=== PATIENT | female | born 1970 | race American Indian/Alaskan Native ===

== ENCOUNTER 2019-02-24 15:35 | Emergency (ER) | payer MEDICAID ==
--- NOTE | 2019-02-24 15:58 | Emergency Department Report ---
Blank Doc - Documentation Documentation: 49-year-old female that presents with headache and HTN. This initial assessment/diagnostic orders/clinical plan/treatment(s) is/are subject to change based on patient's health status, clinical progression and re- assessment by fellow clinical providers in the ED. Further treatment and workup at subsequent clinical providers discretion. Patient/guardians urged not to elope from the ED as their condition may be serious if not clinically assessed and managed. Initial orders include: 1- Patient sent to [facility] for further evaluation and treatment 2- CT head 3- labs
[2019-02-24 17:14] LABS: Basophils # (Auto) 0.1 K/mm3 (0.0-0.1); Basophils % (Auto) 1.2 % (0.0-1.8); Eosinophils # (Auto) 0.1 K/mm3 (0.0-0.4); Eosinophils % (Auto) 1.8 % (0.0-4.3); Hematocrit 41.7 % (30.3-42.9); Hemoglobin 14.3 gm/dl (10.1-14.3); Lymphocytes # (Auto) 2.4 K/mm3 (1.2-5.4); Lymphocytes % (Auto) 35.1 % (13.4-35.0); Mean Corpuscular HGB Conc 34 % (30-34); Mean Corpuscular Volume 83 fl (79-97); Monocytes # (Auto) 0.3 K/mm3 (0.0-0.8); Red Blood Count 5.01 M/mm3 (3.65-5.03); Red Cell Distribution Width 13.9 % (13.2-15.2)
[2019-02-24 17:22] LABS: Platelet Count 233 K/mm3 (140-440)
--- NOTE | 2019-02-24 17:50 | Cat Scan Report ---
CT BRAIN: 02/24/2019 INDICATION / CLINICAL INFORMATION: headache. COMPARISON: None available. FINDINGS: BRAIN/INTRACRANIAL STRUCTURES: Unenhanced CT images of the brain demonstrate no evidence of acute int racranial abnormality. Ventricles and sulci are normal in size and shape. There is no evidence of acute ischemic injury, hemorrhage, or mass. There are no abnormal extra-axial fluid collections. EXTRACRANIAL STRUCTURES: Unremarkable. IMPRESSION: Negative unenhanced CT of the brain. All CT scans at this location are performed using dose reduction to ALARA by means of automated expos ure control. Signer Name: José Miguel Dumas MD Signed: 02/24/2019 5:46 PM Workstation Name: [id number]
[2019-02-24 18:46] LABS: BUN/Creatinine Ratio 11; Blood Urea Nitrogen 12 mg/dL (7-17); Calcium 9.2 mg/dL (8.4-10.2); Hemolysis Index 6
[2019-02-24] MEDS ORDERED: ASPIRIN 325 MG TAB PO ONE (20:12)
--- NOTE | 2019-02-24 21:28 | Emergency Department Report ---
ED General Adult HPI - General Chief complaint: High BP Stated complaint: MEDICAL CLEARANCE Time Seen by Provider: 02/24/19 15:57 Source: patient Mode of arrival: Ambulatory Limitations: No Limitations - History of Present Illness Initial comments: Patient is a 49-year-old -[place] female with a history of hypertension and hyperlipidemia but noncompliant with medications who presents to the ED with complaint of acute onset onset persistent frontal headache for the last 1 week. Patient states that she has not been taking her blood pressure medications especially in the last 1 year preferring to use "home remedies"like vinegar. Patient denies chest pain, shortness of breath, dizziness, syncope, lightheadedness, change in vision, abdominal pain, nausea, vomiting, diaphoresis, dysuria or urinary frequency and urgency, sore throat or nasal and sinus congestion, fever and chills. Patient states that she went to her primary care physician about 8 hours ago and upon evaluation her blood pressure was significantly elevated, and that she was discharged home on with a prescription for lisinopril HCTZ 20-12.5 mg daily which she has not picked up from the pharmacy. Patient states that she was advised to come to the ED for further evaluation. MD Complaint: elevated BP -: Sudden, week(s) (1) Location: head, chest Radiation: non-radiation Severity scale (0 -10): 4 Quality: aching Consistency: constant Improves with: none Worsens with: none Associated Symptoms: denies other symptoms, headaches. denies: confusion, chest pain, cough, diaphoresis, fever/chills, loss of appetite, malaise, nausea/vomiting, rash, seizure, shortness of breath, syncope Treatments Prior to Arrival: none - Related Data Previous Rx's Medication Instructions Recorded Last Taken Type Aspirin 325 mg PO QDAY #30 tablet 12/13/17 Unknown Rx Ibuprofen [Motrin] 600 mg PO Q8H PRN #20 tablet 02/24/19 Unknown Rx Allergies Allergy/AdvReac Type Severity Reaction Status Date / Time No Known Allergies Allergy Verified 12/12/17 19:40 ED Review of Systems ROS: Stated complaint: MEDICAL CLEARANCE Other details as noted in HPI Constitutional: denies: chills, fever Eyes: denies: eye pain, eye discharge, vision change ENT: denies: ear pain, throat pain Respiratory: denies: no symptoms reported, see HPI, cough, shortness of breath, wheezing Cardiovascular: denies: chest pain, palpitations, dyspnea on exertion, edema, paroxysmal nocturnal dyspnea, other Endocrine: no symptoms reported Gastrointestinal: denies: abdominal pain, nausea, vomiting, diarrhea Genitourinary: denies: urgency, dysuria, discharge Musculoskeletal: denies: back pain, joint swelling, arthralgia Skin: denies: rash, lesions Neurological: headache. denies: weakness, paresthesias Psychiatric: denies: anxiety, depression Hematological/Lymphatic: denies: easy bleeding, easy bruising ED Past Medical Hx - Past Medical History Previous Medical History?: Yes Hx Hypertension: Yes Hx Congestive Heart Failure: No Hx Diabetes: No Hx Headaches / Migraines: Yes Hx Psychiatric Treatment: Yes (DEPRESSION) Hx Asthma: No Hx COPD: No - Surgical History Past Surgical History?: No - Social History Smoking Status: Former Smoker Substance Use Type: None - Medications Home Medications: Home Medications Medication Instructions Recorded Confirmed Last Taken Type Aspirin 325 mg PO QDAY #30 tablet 12/13/17 Unknown Rx Ibuprofen [Motrin] 600 mg PO Q8H PRN #20 tablet 02/24/19 Unknown Rx ED Physical Exam - General Limitations: No Limitations General appearance: alert, in no apparent distress - Head Head exam: Present: atraumatic, normocephalic, normal inspection - Eye Eye exam: Present: normal appearance, PERRL, EOMI. Absent: scleral icterus, conjunctival injection, nystagmus Pupils: Present: normal accommodation - ENT ENT exam: Present: normal exam, normal orophraynx, mucous membranes moist, TM's normal bilaterally, normal external ear exam - Neck Neck exam: Present: normal inspection, full ROM - Respiratory Respiratory exam: Present: normal lung sounds bilaterally. Absent: respiratory distress, wheezes, rales, rhonchi, chest wall tenderness, accessory muscle use, decreased breath sounds - Cardiovascular Cardiovascular Exam: Present: regular rate, normal rhythm, normal heart sounds. Absent: systolic murmur, diastolic murmur, rubs, gallop - GI/Abdominal GI/Abdominal exam: Present: soft, normal bowel sounds. Absent: tenderness, guarding, rebound, hyperactive bowel sounds, hypoactive bowel sounds, organomegaly - Extremities Exam Extremities exam: Present: normal inspection, full ROM, normal capillary refill - Back Exam Back exam: Present: normal inspection, full ROM. Absent: tenderness, CVA tenderness (R), muscle spasm, paraspinal tenderness - Neurological Exam Neurological exam: Present: alert, oriented X3, CN II-XII intact, normal gait, reflexes normal - Psychiatric Psychiatric exam: Present: normal affect, normal mood - Skin Skin exam: Present: warm, dry, intact, normal color. Absent: rash ED Course Vital Signs 02/24/19 15:46 Temperature 98.6 F Pulse Rate 68 Respiratory 18 Rate Blood Pressure 179/90 O2 Sat by Pulse 96 Oximetry - Reevaluation(s) Reevaluation #1: 02/24/19 21:28 This is a 49-year-old -[place] female with a history of hypertension and hyperlipidemia who presented to the ED with elevated blood pressure because of noncompliant with her blood pressure medications with headache persistently for one week. In the ED, patient is alert and oriented 3 and is not in distress but hypertensive. Lab test results were reviewed and are all nonactionable including troponin levels. EKG shows normal sinus rhythm with ventricular rate of 62 bpm and no acute acute ST or T-wave abnormalities or pathological Q waves. Head CT scan without contrast shows no acute intracranial abnormalities or hemorrhages. On reevaluation, patient is alert and oriented 3 and is not in distress. Patient was discharged home and advised to fill her prescriptions that were written by her primary care physician and to follow-up with the primary care physician in 7-10 days for reevaluation. Patient was advised to return to the ED immediately if symptoms get worse. 02/24/19 21:30 ED Medical Decision Making - Lab Data Result diagrams: 02/24/19 16:57 02/24/19 16:57 - EKG Data EKG shows normal: sinus rhythm Rate: normal - EKG Data Interpretation: normal EKG 02/24/19 21:31 Normal sinus rhythm, ventricular rate of 62 bpm, no ST or T-wave abnormalities - Radiology Data Radiology results: report reviewed, image reviewed Head CT scan without contrast shows no acute intracranial abnormalities or hemorrhages. - Medical Decision Making This is a 49-year-old -[place] female with a history of hypertension and hyperlipidemia who presented to the ED with elevated blood pressure because of noncompliant with her blood pressure medications with headache persistently for one week. In the ED, patient is alert and oriented 3 and is not in distress but hypertensive. Lab test results were reviewed and are all nonactionable including troponin levels. EKG shows normal sinus rhythm with ventricular rate of 62 bpm and no acute acute ST or T-wave abnormalities or pathological Q waves. Head CT scan without contrast shows no acute intracranial abnormalities or hemorrhages. On reevaluation, patient is alert and oriented 3 and is not in distress. Patient was discharged home and advised to fill her prescriptions that were written by her primary care physician and to follow-up with the primary care physician in 7-10 days for reevaluation. Patient was advised to return to the ED immediately if symptoms get worse. - Differential Diagnosis Uncontrolled HTN; Tension headache; ACS; Critical care attestation.: If time is entered above; I have spent that time in minutes in the direct care of this critically ill patient, excluding procedure time. ED Disposition Clinical Impression: Uncontrolled stage 2 hypertension Tension-type headache Qualifiers: Headache chronicity pattern: unspecified pattern Intractability: not intractable Qualified Code(s): G44.209 - Tension-type headache, unspecified, not intractable Disposition: DC-01 TO HOME OR SELFCARE Is pt being admited?: No Does the pt Need Aspirin: No Condition: Stable Instructions: Hypertension (ED), Acute Headache (ED) Additional Instructions: Take medications including blood pressure medication that the previously prescribed by your primary care physician, follow-up with your primary care physician in 7-10 days for reevaluation. Return to the ED immediately if symp toms get worse. Prescriptions: Ibuprofen [Motrin] 600 mg PO Q8H PRN #20 tablet PRN Reason: Pain Referrals: PRIMARY CARE, [Primary Care Provider] - 3-5 Days Time of Disposition: 21:33 Print Language: BELARUSIAN
[2019-02-24 22:25] VITALS: BP 202/94
== END 2019-02-24 22:05 | disposition home or self-care (01) ==
LOC: ED 15:35
DX: G44.209 Tension-type headache, unspecified, not intractable (principal); G43.909 Migraine, unspecified, not intractable, without status migrainosus; I10 Essential (primary) hypertension; F32.9 Major depressive disorder, single episode, unspecified; Z87.891 Personal history of nicotine dependence
CPT/HCPCS: 36415; 70450; 80048; 83880; 84484; 85025; 93005; 93010

== ENCOUNTER 2021-05-26 13:45 | Emergency (ER) | payer MEDICAID ==
[2021-05-26] MEDS ORDERED: ONDANSETRON 4 MG ODT TAB PO ONE (14:16)
--- NOTE | 2021-05-26 15:21 | Emergency Department Report ---
ED N/V/D HPI - General Chief complaint: Nausea/Vomiting/Diarrhea Stated complaint: SICK Time Seen by Provider: 05/26/21 15:01 Source: patient Mode of arrival: Ambulatory Limitations: No Limitations - History of Present Illness Initial comments: Patient is a 51-year-old female presents emergency room with complaints of nausea, vomiting, diarrhea that began a week ago. She states that the vomiting stopped 2 days ago. She is also been having cough, subjective fever, chills, generalized body aches. She denies any chest pain, shortness of breath. She has not been vaccinated for COVID-19. she has not been tested for COVID-19. She has a past medical history of hypertension but does not take her blood pressure medication. She states that she is not sure what she is supposed to be taking but has not taken it in 1 year. No allergies to medications. - Related Data Previous Rx's Medication Instructions Recorded Last Taken Type Aspirin 325 mg PO QDAY #30 tablet 12/13/17 Unknown Rx Ibuprofen [Motrin] 600 mg PO Q8H PRN #20 tablet 02/24/19 Unknown Rx Benzonatate [Tessalon Perles] 100 mg PO Q8HR PRN #12 cap 05/26/21 Unknown Rx Hyoscyamine Subl [Levsin Sl 0.125 0.125 mg SL Q6HR PRN #8 tab 05/26/21 Unknown Rx TAB] Ondansetron [Zofran Odt] 4 mg PO Q8HR PRN #8 tab.rapdis 05/26/21 Unknown Rx amLODIPine 5 mg PO DAILY #30 tab 05/26/21 Unknown Rx guaiFENesin ER [Mucinex ER] 600 mg PO Q12H #14 tab 05/26/21 Unknown Rx Allergies Allergy/AdvReac Type Severity Reaction Status Date / Time No Known Allergies Allergy Verified 12/12/17 19:40 ED Review of Systems ROS: Stated complaint: SICK Other details as noted in HPI Comment: All other systems reviewed and negative ED Past Medical Hx - Past Medical History Hx Hypertension: Yes Hx Congestive Heart Failure: No Hx Diabetes: No Hx Headaches / Migraines: Yes Hx Psychiatric Treatment: Yes (DEPRESSION) Hx Asthma: No Hx COPD: No - Surgical History Past Surgical History?: No - Social History Smoking Status: Former Smoker Substance Use Type: None - Medications Home Medications: Home Medications Medication Instructions Recorded Confirmed Last Taken Type Aspirin 325 mg PO QDAY #30 tablet 12/13/17 Unknown Rx Ibuprofen [Motrin] 600 mg PO Q8H PRN #20 tablet 02/24/19 Unknown Rx Benzonatate [Tessalon Perles] 100 mg PO Q8HR PRN #12 cap 05/26/21 Unknown Rx Hyoscyamine Subl [Levsin Sl 0.125 0.125 mg SL Q6HR PRN #8 tab 05/26/21 Unknown Rx TAB] Ondansetron [Zofran Odt] 4 mg PO Q8HR PRN #8 tab.rapdis 05/26/21 Unknown Rx amLODIPine 5 mg PO DAILY #30 tab 05/26/21 Unknown Rx guaiFENesin ER [Mucinex ER] 600 mg PO Q12H #14 tab 05/26/21 Unknown Rx ED Physical Exam - General Limitations: No Limitations General appearance: alert, in no apparent distress - Head Head exam: Present: atraumatic, normocephalic - Eye Eye exam: Present: normal appearance - ENT ENT exam: Present: mucous membranes moist - Respiratory Respiratory exam: Present: normal lung sounds bilaterally. Absent: respiratory distress, wheezes, rales, rhonchi, stridor, chest wall tenderness, accessory muscle use, decreased breath sounds, prolonged expiratory - Cardiovascular Cardiovascular Exam: Present: regular rate, normal rhythm, normal heart sounds. Absent: systolic murmur, diastolic murmur, rubs, gallop - GI/Abdominal GI/Abdominal exam: Present: soft, normal bowel sounds. Absent: distended, tenderness, guarding, rebound, rigid - Neurological Exam Neurological exam: Present: alert, oriented X3 - Psychiatric Psychiatric exam: Present: normal affect, normal mood - Skin Skin exam: Present: warm, dry, intact ED Course Vital Signs 05/26/21 05/26/21 14:17 17:28 Temperature 98.8 F Pulse Rate 67 72 Respiratory 20 14 Rate Blood Pressure 174/92 Blood Pressure 214/113 [Right] O2 Sat by Pulse 98 100 Oximetry ED Medical Decision Making - Lab Data Result diagrams: 05/26/21 15:59 05/26/21 15:59 - Radiology Data Radiology results: report reviewed Ordering Physician: CLAUDIO KAUFFMAN Date of Service: 05/26/21 Procedure(s): XR chest routine 2V Accession Number(s): [id number] cc: CLAUDIO KAUFFMAN Fluoro Time In Minutes: CHEST 2 VIEWS INDICATION: cough, n/v/d. COMPARISON: 12/13/2017. FINDINGS: Support devices: None. Heart: Within normal limits. Lungs/Pleura: No acute air space or interstitial disease. No significant pleural effusion. IMPRESSION: No acute findings. Signer Name: Ludin Ariza MD Signed: 05/26/2021 3:33 PM Workstation Name: [id number] Transcribed By: ES Dictated By: Ludin Ariza MD Electronically Authenticated By: Ludin Ariza MD Signed Date/Time: 05/26/211532 DD/ 31 TD/TT: - Medical Decision Making Patient is a 51-year-old female presents emergency room with complaints of nausea, vomiting, diarrhea that began a week ago. She states that the vomiting stopped 2 days ago. She is also been having cough, subjective fever, chills, generalized body aches. She denies any chest pain, shortness of breath. She has not been vaccinated for COVID-19. she has not been tested for COVID-19. She has a past medical history of hypertension but does not take her blood pressure medication. She states that she is not sure what she is supposed to be taking but has not taken it in 1 year. No allergies to medications. Vitals with elevated blood pressure, otherwise vitals are normal, patient has been off blood pressure medication for 1 year, will start patient on low-dose amlodipine, she is not having any symptoms related to her blood pressure, the up-to-date medical literature does not recommend emergently lowering asymptomatic elevated blood pressure, patient will be started on medication, discussed lifestyle modifications, discussed the importance of primary care follow-up and keeping a blood pressure log. No abdominal tenderness on exam, breath sounds are clear bilaterally labs are normal. Chest x-ray with no acute process. Patient given ODT Zofran and was able to tolerate p.o. intake without any difficulty. Symptoms and examination likely consistent with URI versus viral illness. Patient given prescription for medication. Discussed supportive care and symptomatic treatment with patient and the importance of oral hydration. Advised patient please take medication as prescribed. Increase your water intake. Eat a bland liquid diet and slowly advance your diet as tolerated. Follow-up with your primary care doctor for reexamination. Return to emergency room for any new or worsening symptoms. Recommend outpatient COVID-19 testing a nd if positive please self quarantine in accordance with CDC guidelines. Critical care attestation.: If time is entered above; I have spent that time in minutes in the direct care of this critically ill patient, excluding procedure time. ED Disposition Clinical Impression: Nausea vomiting and diarrhea, Uncontrolled hypertension URI (upper respiratory infection) Qualifiers: URI type: unspecified URI Qualified Code(s): J06.9 - Acute upper respiratory i nfection, unspecified Disposition: HOME / SELF CARE / HOMELESS Is pt being admited?: No Does the pt Need Aspirin: No Condition: Stable Instructions: Nausea and Vomiting, Adult, Upper Respiratory Infection, Adult, [id number], Hypertension, Adult, Hypertension (ED) Additional Instructions: please take medication as prescribed. Increase your water intake. Eat a bland liquid diet and slowly advance your diet as tolerated. Follow-up with your primary care doctor for reexamination. Return to emergency room for any new or worsening symptoms. Recommend outpatient COVID-19 testing and if positive please self quarantine in accordance with CDC guidelines. Prescriptions: amLODIPine 5 mg PO DAILY #30 tab Hyoscyamine Subl [Levsin Sl 0.125 TAB] 0.125 mg SL Q6HR PRN #8 tab PRN Reason: diarrhea/abdominal cramping guaiFENesin ER [Mucinex ER] 600 mg PO Q12H #14 tab Benzonatate [Tessalon Perles] 100 mg PO Q8HR PRN #12 cap PRN Reason: cough Ondansetron [Zofran Odt] 4 mg PO Q8HR PRN #8 tab.rapdis PRN Reason: nausea/vomiting Referrals: ROXANNE ONOFRE MD [Primary Care Provider] - 3-5 Days TALYA ROJO MD [Staff Physician] - 3-5 Days [facility] [Provider Group] - 3-5 Days Time of Disposition: 17:03 Print Language: COLOMBIAN
--- NOTE | 2021-05-26 15:37 | XRay Report ---
CHEST 2 VIEWS INDICATION: cough, n/v/d. COMPARISON: 12/13/2017. FINDINGS: Support devices: None. Heart: Within normal limits. Lungs/Pleura: No acute air space or interstitial disease. No significant pleural effusion. IMPRESSION: No acute findings. Signer Name: Ludin Ariza MD Signed: 05/26/2021 3:33 PM Workstation Name: [id number]
[2021-05-26 16:32] LABS: Basophils # (Auto) 0.1 K/mm3 (0.0-0.1); Eosinophils # (Auto) 0.1 K/mm3 (0.0-0.4); Eosinophils % (Auto) 1.1 % (0.0-4.3); Hematocrit 41.3 % (30.3-42.9); Hemoglobin 13.6 gm/dl (10.1-14.3); Lymphocytes # (Auto) 2.9 K/mm3 (1.2-5.4); Lymphocytes % (Auto) 34.8 % (13.4-35.0); Mean Corpuscular HGB Conc 33 % (30-34); Mean Corpuscular Volume 83 fl (79-97); Monocytes # (Auto) 0.6 K/mm3 (0.0-0.8); Monocytes % (Auto) 6.7 % (0.0-7.3); Red Blood Count 4.95 M/mm3 (3.65-5.03); Red Cell Distribution Width 14.4 % (13.2-15.2)
[2021-05-26 16:34] LABS: Platelet Count 309 K/mm3 (140-440)
[2021-05-26 16:58] LABS: Alanine Aminotransferase 11 units/L (7-56); BUN/Creatinine Ratio 14; Blood Urea Nitrogen 14 mg/dL (7-17); Calcium 9.1 mg/dL (8.4-10.2); Hemolysis Index 7
[2021-05-26 17:30] VITALS: BP 214/113
== END 2021-05-26 17:28 | disposition home or self-care (01) ==
LOC: ED 13:45
DX: R11.2 Nausea with vomiting, unspecified (principal); J06.9 Acute upper respiratory infection, unspecified; R19.7 Diarrhea, unspecified; F32.A Depression, unspecified; G43.909 Migraine, unspecified, not intractable, without status migrainosus; I10 Essential (primary) hypertension; Z79.82 Long term (current) use of aspirin; Z87.891 Personal history of nicotine dependence; Z79.899 Other long term (current) drug therapy
CPT/HCPCS: 36415; 71046; 80053; 83690; 85025; 99283; J3490; Q0162

== ENCOUNTER 2021-11-14 09:02 | Emergency (ER) | payer MEDICAID ==
[2021-11-14 10:56] LABS: Basophils % (Auto) 0.5 % (0.0-1.8); Eosinophils # (Auto) 0.1 K/mm3 (0.0-0.4); Eosinophils % (Auto) 0.8 % (0.0-4.3); Hematocrit 41.7 % (30.3-42.9); Hemoglobin 13.9 gm/dl (10.1-14.3); Lymphocytes # (Auto) 2.8 K/mm3 (1.2-5.4); Lymphocytes % (Auto) 35.7 % (13.4-35.0); Mean Corpuscular HGB Conc 33 % (30-34); Mean Corpuscular Volume 83 fl (79-97); Monocytes # (Auto) 0.5 K/mm3 (0.0-0.8); Monocytes % (Auto) 6.4 % (0.0-7.3); Platelet Count 325 K/mm3 (140-440); Red Blood Count 5.03 M/mm3 (3.65-5.03); Red Cell Distribution Width 14.5 % (13.2-15.2)
[2021-11-14 11:06] LABS: Bilirubin,Urine NEG (Negative); Blood,Urine NEG (Negative); Color,Urine Yellow (Yellow); Protein,Urine <15 mg/dL mg/dL (Negative); Urobilinogen,Urine < 2.0 mg/dL (<2.0)
[2021-11-14 11:11] LABS: Alanine Aminotransferase 12 units/L (7-56); BUN/Creatinine Ratio 11; Blood Urea Nitrogen 12 mg/dL (7-17); Calcium 9.4 mg/dL (8.4-10.2); Hemolysis Index 3
[2021-11-14 11:20] LABS: Mucus,Urine 1+ /HPF
[2021-11-14] MEDS ORDERED: DICYCLOMINE 20 MG TAB PO ONE (12:06)
[2021-11-14] MEDS ORDERED: SODIUM CHLORIDE 0.9% 1000 ML 1,000 ML IV ONE (12:06)
[2021-11-14] MEDS ORDERED: diphenhydrAMINE 50 MG/ML VIAL IV ONE (12:06)
[2021-11-14] MEDS ORDERED: FAMOTIDINE 20 MG/2 ML INJ IV ONE (12:06)
[2021-11-14] MEDS ORDERED: METOCLOPRAMIDE 10 MG/2 ML INJ IV ONE (12:06)
--- NOTE | 2021-11-14 12:27 | Emergency Department Report ---
ED Abdominal Pain HPI - General Chief Complaint: Abdominal Pain Stated Complaint: ABD PAIN Time Seen by Provider: 11/14/21 11:23 Source: patient Mode of arrival: Ambulatory Limitations: No Limitations - History of Present Illness Initial Comments: This is a 51-year-old female nontoxic, well nourished in appearance, no acute signs of distress presents to the ED with c/o of nausea and abdominal pain 1 week. Patient denies any vomiting. Patient describes abdominal pain as cramping and aching with level of 8/10 to LUQ. Patient denies chest pain, short of breath, fever, hemoptysis, blood in stool, chills, headache, stiff neck, numbness or tingling. Patient denies any diarrhea or constipation. Denies any blood in stool. Patient denies any recent travels. Patient denies any pelvic pain. Patient denies any vaginal discharge. Denies being sexually active. Patient denies any allergies. MD Complaint: abdominal pain -: week(s) (1) Location: LUQ Radiation: none Migration to: no migration Severity: mild Severity scale (0 -10): 8 Quality: cramping, aching Consistency: intermittent Improves With: nothing Worsens With: nothing Associated Symptoms: nausea. denies: vomiting, diarrhea, fever, chills, constipation, dysuria, hematemesis, hematochezia, melena, hematuria, anorexia, syncope - Related Data Previous Rx's Medication Instructions Recorded Last Taken Type Aspirin 325 mg PO QDAY #30 tablet 12/13/17 Unknown Rx Ibuprofen [Motrin] 600 mg PO Q8H PRN #20 tablet 02/24/19 Unknown Rx Benzonatate [Tessalon Perles] 100 mg PO Q8HR PRN #12 cap 05/26/21 Unknown Rx Hyoscyamine Subl [Levsin Sl 0.125 0.125 mg SL Q6HR PRN #8 tab 05/26/21 Unknown Rx TAB] Ondansetron [Zofran Odt] 4 mg PO Q8HR PRN #8 tab.rapdis 05/26/21 Unknown Rx amLODIPine 5 mg PO DAILY #30 tab 05/26/21 Unknown Rx guaiFENesin ER [Mucinex ER] 600 mg PO Q12H #14 tab 05/26/21 Unknown Rx Ondansetron [Zofran Odt] 4 mg PO Q8HR PRN #12 tab.rapdis 11/14/21 Unknown Rx cephALEXin [Keflex] 500 mg PO Q8HR #21 cap 11/14/21 Unknown Rx Allergies Allergy/AdvReac Type Severity Reaction Status Date / Time No Known Allergies Allergy Verified 12/12/17 19:40 ED Review of Systems ROS: Stated complaint: ABD PAIN Other details as noted in HPI Comment: All other systems reviewed and negative Constitutional: denies: chills, fever Eyes: denies: eye pain, eye discharge, vision change ENT: denies: ear pain, throat pain Respiratory: denies: cough, shortness of breath, wheezing Cardiovascular: denies: chest pain, palpitations Endocrine: no symptoms reported Gastrointestinal: abdominal pain, nausea. denies: vomiting, diarrhea, constipation, hematemesis, melena, hematochezia Genitourinary: denies: urgency, dysuria, discharge Musculoskeletal: denies: back pain, joint swelling, arthralgia Skin: denies: rash, lesions Neurological: denies: headache, weakness, paresthesias Psychiatric: denies: anxiety, depression Hematological/Lymphatic: denies: easy bleeding, easy bruising ED Past Medical Hx - Past Medical History Hx Hypertension: Yes Hx Congestive Heart Failure: No Hx Diabetes: No Hx Headaches / Migraines: Yes Hx Psychiatric Treatment: Yes (DEPRESSION) Hx Asthma: No Hx COPD: No - Surgical History Past Surgical History?: No - Social History Smoking Status: Never Smoker - Medications Home Medications: Home Medications Medication Instructions Recorded Confirmed Last Taken Type Aspirin 325 mg PO QDAY #30 tablet 12/13/17 Unknown Rx Ibuprofen [Motrin] 600 mg PO Q8H PRN #20 tablet 02/24/19 Unknown Rx Benzonatate [Tessalon Perles] 100 mg PO Q8HR PRN #12 cap 05/26/21 Unknown Rx Hyoscyamine Subl [Levsin Sl 0.125 0.125 mg SL Q6HR PRN #8 tab 05/26/21 Unknown Rx TAB] Ondansetron [Zofran Odt] 4 mg PO Q8HR PRN #8 tab.rapdis 05/26/21 Unknown Rx amLODIPine 5 mg PO DAILY #30 tab 05/26/21 Unknown Rx guaiFENesin ER [Mucinex ER] 600 mg PO Q12H #14 tab 05/26/21 Unknown Rx Ondansetron [Zofran Odt] 4 mg PO Q8HR PRN #12 tab.rapdis 11/14/21 Unknown Rx cephALEXin [Keflex] 500 mg PO Q8HR #21 cap 11/14/21 Unknown Rx ED Physical Exam - General Limitations: No Limitations General appearance: alert, in no apparent distress - Head Head exam: Present: atraumatic, normocephalic - Eye Eye exam: Present: normal appearance - Neck Neck exam: Present: normal inspection, full ROM. Absent: lymphadenopathy - Respiratory Respiratory exam: Present: normal lung sounds bilaterally. Absent: respiratory distress, wheezes, rales, rhonchi, stridor, chest wall tenderness, accessory muscle use, decreased breath sounds, prolonged expiratory - Cardiovascular Cardiovascular Exam: Present: regular rate, normal rhythm, normal heart sounds. Absent: bradycardia, tachycardia, irregular rhythm, systolic murmur, diastolic murmur, rubs, gallop - GI/Abdominal GI/Abdominal exam: Present: soft, tenderness (LUQ), normal bowel sounds. Absent: distended, guarding, rebound, rigid, diminished bowel sounds - Extremities Exam Extremities exam: Present: full ROM - Back Exam Back exam: Present: normal inspection, full ROM. Absent: tenderness, CVA tenderness (R), CVA tenderness (L), muscle spasm, paraspinal tenderness, vertebral tenderness, rash noted - Neurological Exam Neurological exam: Present: alert, oriented X3, normal gait - Psychiatric Psychiatric exam: Present: normal affect, normal mood - Skin Skin exam: Present: warm, dry, intact, normal color. Absent: rash ED Course Vital Signs 11/14/21 11/14/21 11/14/21 09:55 11:38 12:26 Temperature 98.2 F 98.4 F Pulse Rate 73 72 Respiratory 16 18 18 Rate Blood Pressure 182/106 Blood Pressure 186/103 [Right] O2 Sat by Pulse 98 98 97 Oximetry 11/14/21 12:28 Temperature Pulse Rate Respiratory Rate Blood Pressure Blood Pressure 185/100 [Right] O2 Sat by Pulse Oximetry - Reevaluation(s) Reevaluation #1: 11/14/21 12:26 Patient is speaking in full sentences with no signs of distress noted. ED Medical Decision Making - Lab Data Result diagrams: 11/14/21 10:22 11/14/21 10:22 Lab Results 11/14/21 11/14/21 11/14/21 Range/Units 10:22 10:22 21:13 WBC 7.7 (4.5-11.0) K/mm3 RBC 5.03 (3.65-5.03) M/mm3 Hgb 13.9 (10.1-14.3) gm/dl Hct 41.7 (30.3-42.9) % MCV 83 (79-97) fl MCH 28 (28-32) pg MCHC 33 (30-34) % RDW 14.5 (13.2-15.2) % Plt Count 325 (140-440) K/mm3 Lymph % (Auto) 35.7 H (13.4-35.0) % [place] % (Auto) 6.4 (0.0-7.3) % Eos % (Auto) 0.8 (0.0-4.3) % Baso % (Auto) 0.5 (0.0-1.8) % Lymph # (Auto) 2.8 (1.2-5.4) K/mm3 [place] # (Auto) 0.5 (0.0-0.8) K/mm3 Eos # (Auto) 0.1 (0.0-0.4) K/mm3 Baso # (Auto) 0.0 (0.0-0.1) K/mm3 Seg Neutrophils % 56.6 (40.0-70.0) % Seg Neutrophils # 4.4 (1.8-7.7) K/mm3 Sodium 140 (137-145) mmol/L Potassium 3.9 (3.6-5.0) mmol/L Chloride 103.1 (98-107) mmol/L Carbon Dioxide 24 (22-30) mmol/L Anion Gap 17 mmol/L BUN 12 (7-17) mg/dL Creatinine 1.1 (0.6-1.2) mg/dL Estimated GFR > 60 ml/min BUN/Creatinine Ratio 11 % Glucose 114 H (65-100) mg/dL Calcium 9.4 (8.4-10.2) mg/dL Total Bilirubin 0.40 (0.1-1.2) mg/dL AST 17 (5-40) units/L ALT 12 (7-56) units/L Alkaline Phosphatase 68 (35-129) units/L Total Protein 8.3 H (6.3-8.2) g/dL Albumin 4.0 (3.9-5) g/dL Albumin/Globulin Ratio 0.9 % Lipase 15 (13-60) units/L Urine Color Yellow (Yellow) Urine Turbidity Slightly-cloudy (Clear) Urine pH 6.0 (5.0-7.0) Ur Specific [place] 1.018 (1.003-1.030) Urine Protein <15 mg/dl (Negative) mg/dL Urine Glucose (UA) Neg (Negative) mg/dL Urine Ketones Neg (Negative) mg/dL Urine Blood Neg (Negative) Urine Nitrite Neg (Negative) Urine Bilirubin Neg (Negative) Urine Urobilinogen < 2.0 (<2.0) mg/dL Ur Leukocyte Esterase Mod (Negative) Urine WBC (Auto) 59.0 H (0.0-6.0) /HPF Urine RBC (Auto) 8.0 (0.0-6.0) /HPF U Epithel Cells (Auto) 24.0 H (0-13.0) /HPF Urine Mucus 1+ /HPF - Radiology Data CT ABDOMEN AND PELVIS WITH INTRAVENOUS CONTRAST INDICATION / CLINICAL INFORMATION: Abdominal pain with nausea. TECHNIQUE: 100 cc Omnipaque [address] scans at this location are performed using CT dose reduction for ALARA by means of automated exposure control. COMPARISON: None available. FINDINGS: ABDOMEN: The liver, spleen, gallbladder, bile ducts pancreas, adrenal glands and kidneys are normal in appearance. There is no evidence of bowel obstruction, wall thickening or free air. No adenopathy is present. No acute vascular abnormality is seen. The lung bases are clear. PELVIS: The distal ureters and urinary bladder are normal. The uterus and adnexal regions are unremarkable. A normal appendix is present and there is no evidence of diverticulitis. No abnormal mass or fluid collection is seen. There is mild diastases of the rectus sheath centered at the umbilicus. I do not identify a focal hernia. No acute osseous abnormality is present. IMPRESSION: No acute abnormality is identified. Signer Name: Eyad Dominguez MD Signed: 11/14/2021 3:04 PM Workstation Name: [email or web address] - Medical Decision Making This is a 52-year-old female that presents with abdominal pain, nausea and UTI. Patient is stable and was examined by me. Labs obtained. UA obtained. CT of abdomen obtained and dictated by the radiologist. Patient is notified of the report with no questions noted by the patient. Vital signs are stable prior to discharge. Patient received medical treatment in the ED which patient stated symptoms has resovled and subsided. Was instructed note to operate any machinery due to possible drowsiness and stated someone will drive the patient home. A by mouth challenge has been obtained and patient tolerated well with no nausea vomiting. Patient was also instructed to Follow-up with a primary care doctor in 3-5 days or if symptoms worsen and continue return to emergency room as soon as possible. At time of discharge, the patient does not seem toxic or ill in appearance. No acute signs of distress noted. Patient agrees to discharge treatment plan of care. No further questions noted by the patient. Critical care attestation.: If time is entered above; I have spent that time in minutes in the direct care of this critically ill patient, excluding procedure time. ED Disposition Clinical Impression: UTI (urinary tract infection) Qualifiers: Urinary tract infection type: acute cystitis Hematuria presence: without hematuria Qualified Code(s): N30.00 - Acute cystitis without hematuria Abdominal pain Qualifiers: Abdominal location: generalized Qualified Code(s): R10.84 - Generalized abdominal pain Nausea & vomiting Qualifiers: Vomiting type: unspecified Qualified Code(s): R11.2 - Nausea with vomiting, unspecified Disposition: 01 HOME / SELF CARE / HOMELESS Is pt being admited?: No Does the pt Need Aspirin: No Condition: Stable Instructions: Abdominal Pain (ED), Urinary Tract Infection, Adult, [id number] Additional Instructions: Follow-up with a primary care doctor in 3-5 days or if symptoms worsen and continue return to emergency room as soon as possible. Prescriptions: cephALEXin [Keflex] 500 mg PO Q8HR #21 cap Ondansetron [Zofran Odt] 4 mg PO Q8HR PRN #12 tab.rapdis PRN Reason: Nausea Referrals: PRIMARY MD JEMIMA [Referring] - 3-5 Days TALYA ROJO MD [Staff Physician] - 3-5 Days Time of Disposition: 17:32
[2021-11-14 12:29] VITALS: BP 185/100
--- NOTE | 2021-11-15 08:08 | Cat Scan Report ---
CT ABDOMEN AND PELVIS WITH INTRAVENOUS CONTRAST INDICATION / CLINICAL INFORMATION: Abdominal pain with nausea. TECHNIQUE: 100 cc Omnipaque [address] scans at this location are performed using CT d ose reduction for CHER by means of automated exposure control. COMPARISON: None available. FINDINGS: ABDOMEN: The liver, spleen, gallbladder, bile ducts pancreas, adrenal glands and kidneys are normal i n appearance. There is no evidence of bowel obstruction, wall thickening or free air. No adenopathy i s present. No acute vascular abnormality is seen. The lung bases are clear. PELVIS: The distal ureters and urinary bladder are normal. The uterus and adnexal regions are unremar kable. A normal appendix is present and there is no evidence of diverticulitis. No abnormal mass or f luid collection is seen. There is mild diastases of the rectus sheath centered at the umbilicus. I do not identify a focal hernia. No acute osseous abnormality is present. IMPRESSION: No acute abnormality is identified. Signer Name: Eyad Dominguez MD Signed: 11/14/2021 4:04 PM Workstation Name: [email or web address]
== END 2021-11-14 18:19 | disposition home or self-care (01) ==
LOC: ED 09:02
DX: N39.0 Urinary tract infection, site not specified (principal); R10.32 Left lower quadrant pain; R11.2 Nausea with vomiting, unspecified
CPT/HCPCS: 36415; 74177; 80053; 81001; 83690; 85025; 87086; 96361; 96374; 96375; 99284; J1200; J2765; J3490; J7030; Q9967